=== PATIENT | male | born 1940 | race Caucasian/White ===

== ENCOUNTER 2022-01-16 16:04 | Inpatient (IN) ==
[2022-01-17] MEDS ORDERED: Acetaminophen 325 MG TABLET PO PRN (16:50)
[2022-01-17] MEDS ORDERED: Nitroglycerin 0.4 MG TAB.SUBL SL PRN (16:50)
[2022-01-17] MEDS: carvediloL 6.25 MG TABLET PO SCH (17:42)
[2022-01-18] MEDS: *HR* Enoxaparin 40 MG/0.4 ML SYRINGE SQ SCH (04:00)
[2022-01-18 04:38] LABS: Basophils % 0.5 %; Eosinophils # 0.8 K/mcL (0.0-0.6); Eosinophils % 10.2 %; Hematocrit 24.6 % (37.5-50.1); Immature Granulocytes % 0.9 % (0-4); Lymphocytes # 1.4 K/mcL (0.6-4.6); Lymphocytes % 17.4 %; Mean Corpuscular HGB Conc 32.5 g/dL (31.6-35.5); Mean Corpuscular Hemoglobin 29.1 pg (28.0-33.3); Mean Corpuscular Volume 89.5 fL (83.0-100.0); Mean Platelet Volume 9.6 fL (9.4-12.4); Monocytes # 0.9 K/mcL (0.0-1.3); Neutrophils # 4.6 K/mcL (1.6-8.9); Platelet Count 354 K/mcL (140-400); Red Blood Count 2.75 M/mcL (4.19-5.50); Red Cell Distribution Width 14.5 % (11.5-14.5); White Blood Count 7.7 K/mcL (4.3-11.1)
[2022-01-18 04:54] LABS: BUN/Creatinine Ratio 20 (6-26); Blood Urea Nitrogen 19 mg/dL (8-23); Calcium 8.4 mg/dL (8.6-10.3); Carbon Dioxide 27 mEq/L (23-29); Chloride 101 mEq/L (98-107); Glucose 107 mg/dL (70-105); Osmolality,Calculated 281 (280-300); Sodium 134 mEq/L (136-145); eGFR For African Americans > 60 (> 60); eGFR For Non-African Americans > 60 (> 60)
[2022-01-18] MEDS: Tiotropium 10 INH DOSE IH SCH (07:21)
[2022-01-18] MEDS: lisinopriL 5 MG TABLET PO SCH (08:27)
[2022-01-18] MEDS: carvediloL 6.25 MG TABLET PO SCH ×2 (08:27→16:12)
[2022-01-18] MEDS: Aspirin Enteric Coated 81 MG Tablet PO SCH (08:27)
[2022-01-18] MEDS: Melatonin 3 MG TABLET PO PRN (20:05)
[2022-01-19] MEDS: *HR* Enoxaparin 40 MG/0.4 ML SYRINGE SQ SCH (05:31)
[2022-01-19] MEDS: Tiotropium 10 INH DOSE IH SCH (07:14)
[2022-01-19] MEDS: carvediloL 6.25 MG TABLET PO SCH ×2 (08:43→16:50)
[2022-01-19] MEDS: Aspirin Enteric Coated 81 MG Tablet PO SCH (08:43)
[2022-01-19] MEDS: lisinopriL 5 MG TABLET PO SCH (08:43)
[2022-01-19] MEDS: Melatonin 3 MG TABLET PO PRN (20:06)
[2022-01-20] MEDS: *HR* Enoxaparin 40 MG/0.4 ML SYRINGE SQ SCH (05:58)
[2022-01-20] MEDS: Aspirin Enteric Coated 81 MG Tablet PO SCH (09:12)
[2022-01-20] MEDS: lisinopriL 5 MG TABLET PO SCH (09:12)
[2022-01-20] MEDS: carvediloL 6.25 MG TABLET PO SCH ×2 (09:12→16:56)
[2022-01-20] MEDS: Tiotropium 10 INH DOSE IH SCH (10:13)
[2022-01-20] MEDS: hydrOXYzine pamoate 25 MG CAPSULE PO PRN (13:24)
[2022-01-20] MEDS: Melatonin 3 MG TABLET PO PRN (21:04)
[2022-01-21] MEDS: *HR* Enoxaparin 40 MG/0.4 ML SYRINGE SQ SCH (06:36)
[2022-01-21] MEDS: lisinopriL 5 MG TABLET PO SCH (08:11)
[2022-01-21] MEDS: Aspirin Enteric Coated 81 MG Tablet PO SCH (08:11)
[2022-01-21] MEDS: carvediloL 6.25 MG TABLET PO SCH ×2 (08:12→16:15)
[2022-01-21] MEDS: Tiotropium 10 INH DOSE IH SCH (09:58)
[2022-01-21] MEDS: Melatonin 3 MG TABLET PO PRN (19:58)
[2022-01-22] MEDS: hydrOXYzine pamoate 25 MG CAPSULE PO PRN (02:47)
[2022-01-22 04:39] LABS: Basophils # 0.1 K/mcL (0.0-0.2); Basophils % 0.7 %; Eosinophils # 0.9 K/mcL (0.0-0.6); Eosinophils % 9.4 %; Hemoglobin 8.1 g/dL (12.9-16.9); Immature Granulocytes % 0.9 % (0-4); Lymphocytes # 1.5 K/mcL (0.6-4.6); Lymphocytes % 14.8 %; Mean Corpuscular HGB Conc 31.2 g/dL (31.6-35.5); Mean Corpuscular Hemoglobin 28.8 pg (28.0-33.3); Mean Corpuscular Volume 92.5 fL (83.0-100.0); Mean Platelet Volume 9.3 fL (9.4-12.4); Monocytes # 0.8 K/mcL (0.0-1.3); Monocytes % 7.6 %; Neutrophils # 6.6 K/mcL (1.6-8.9); Platelet Count 426 K/mcL (140-400); Red Blood Count 2.81 M/mcL (4.19-5.50); Red Cell Distribution Width 15.3 % (11.5-14.5); Segmented Neutrophils % 66.6 %; White Blood Count 9.9 K/mcL (4.3-11.1)
[2022-01-22 04:54] LABS: Alanine Aminotransferase 55 Units/L (7-52); Albumin 3.2 g/dL (3.5-5.7); Albumin/Globulin Ratio 1.5 (1.1-2.2); Alkaline Phosphatase 65 Units/L (34-104); Aspartate Amino Transferase 26 Units/L (13-39); BUN/Creatinine Ratio 21 (6-26); Bilirubin,Total 0.8 mg/dL (0.3-1.0); Blood Urea Nitrogen 22 mg/dL (8-23); Calcium 8.1 mg/dL (8.6-10.3); Carbon Dioxide 27 mEq/L (23-29); Chloride 103 mEq/L (98-107); Globulin 2.1 g/dL (2.4-3.5); Glucose 104 mg/dL (70-105); Osmolality,Calculated 282 (280-300); Potassium 4.3 mEq/L (3.5-5.1); Sodium 134 mEq/L (136-145); Total Protein 5.3 g/dL (6.4-8.9); eGFR For African Americans > 60 (> 60); eGFR For Non-African Americans > 60 (> 60)
[2022-01-22] MEDS: *HR* Enoxaparin 40 MG/0.4 ML SYRINGE SQ SCH (05:23)
[2022-01-22] MEDS: Tiotropium 10 INH DOSE IH SCH (07:00)
[2022-01-22] MEDS: lisinopriL 5 MG TABLET PO SCH (08:09)
[2022-01-22] MEDS: Aspirin Enteric Coated 81 MG Tablet PO SCH (08:10)
[2022-01-22] MEDS: carvediloL 6.25 MG TABLET PO SCH ×2 (08:10→17:11)
[2022-01-22] MEDS: Melatonin 3 MG TABLET PO PRN (21:36)
[2022-01-23] MEDS: *HR* Enoxaparin 40 MG/0.4 ML SYRINGE SQ SCH (05:57)
[2022-01-23] MEDS: carvediloL 6.25 MG TABLET PO SCH ×2 (07:36→17:15)
[2022-01-23] MEDS: lisinopriL 5 MG TABLET PO SCH (07:36)
[2022-01-23] MEDS: Aspirin Enteric Coated 81 MG Tablet PO SCH (07:36)
[2022-01-23] MEDS: Tiotropium 10 INH DOSE IH SCH (09:13)
[2022-01-23] MEDS: Ipratropium/Albuterol Neb 3 ML IH SCH ×2 (14:32→21:00)
[2022-01-23] MEDS: Furosemide 40 MG TABLET PO ONE ×2 (15:53→20:47)
[2022-01-23 17:58] LABS: ABG Base Excess 1 mEq/L (-2 to 3); ABG HCO3 25 mEq/L (21-27); ABG Oxygen Saturation 91 % (95-98); ABG PCO2 39 mmHg (35-45); ABG PH 7.42 pH Units (7.32-7.45); ABG PO2 59 mmHg (85-104); ABG TCO2 27 mEq/L (20-26)
[2022-01-23 20:57] LABS: Bilirubin,Urine Negative (Negative); Blood,Urine Negative (Negative); Clarity,Urine Clear (Clear); Color,Urine Yellow (Yellow); Glucose,Urine (UA) Normal (Normal); Ketones,Urine Negative (Negative); Leukocyte Esterase,Urine Negative (Negative); Nitrite,Urine Negative (Negative); PH,Urine 5.5 pH Units (5.0-8.0); Protein,Urine Negative (Neg-Trace)
[2022-01-24] MEDS ORDERED: methylPREDNISolone 125 MG/2 ML VIAL IVP ONE (00:31)
[2022-01-24] MEDS: Melatonin 3 MG TABLET PO PRN ×2 (00:51→21:25)
[2022-01-24] MEDS: Ipratropium/Albuterol Neb 3 ML IH SCH ×6 (03:59→20:36)
[2022-01-24] MEDS: *HR* Enoxaparin 40 MG/0.4 ML SYRINGE SQ SCH (04:06)
[2022-01-24 04:55] LABS: Hematocrit 28.9 % (37.5-50.1); Hemoglobin 9.2 g/dL (12.9-16.9); Mean Corpuscular HGB Conc 31.8 g/dL (31.6-35.5); Mean Corpuscular Hemoglobin 28.8 pg (28.0-33.3); Mean Corpuscular Volume 90.6 fL (83.0-100.0); Mean Platelet Volume 9.4 fL (9.4-12.4); Platelet Count 484 K/mcL (140-400); Red Blood Count 3.19 M/mcL (4.19-5.50); Red Cell Distribution Width 15.5 % (11.5-14.5); White Blood Count 9.1 K/mcL (4.3-11.1)
[2022-01-24 05:18] LABS: Alanine Aminotransferase 46 Units/L (7-52); Albumin 3.6 g/dL (3.5-5.7); Albumin/Globulin Ratio 1.5 (1.1-2.2); Alkaline Phosphatase 83 Units/L (34-104); Aspartate Amino Transferase 27 Units/L (13-39); BUN/Creatinine Ratio 18 (6-26); Bilirubin,Total 0.8 mg/dL (0.3-1.0); Blood Urea Nitrogen 21 mg/dL (8-23); Calcium 8.8 mg/dL (8.6-10.3); Carbon Dioxide 27 mEq/L (23-29); Chloride 101 mEq/L (98-107); Globulin 2.4 g/dL (2.4-3.5); Glucose 144 mg/dL (70-105); Osmolality,Calculated 288 (280-300); Potassium 4.3 mEq/L (3.5-5.1); Sodium 136 mEq/L (136-145); eGFR For African Americans > 60 (> 60); eGFR For Non-African Americans > 60 (> 60)
[2022-01-24] MEDS: Tiotropium 10 INH DOSE IH SCH (07:03)
[2022-01-24] MEDS: lisinopriL 5 MG TABLET PO SCH (07:42)
[2022-01-24] MEDS: carvediloL 6.25 MG TABLET PO SCH ×2 (07:43→16:12)
[2022-01-24] MEDS: Aspirin Enteric Coated 81 MG Tablet PO SCH (07:43)
[2022-01-24 08:31] LABS: % Iron Saturation 9 % (20-55); Iron 26 mcg/dL (65-175); Transferrin 216 mg/dL (203-362)
[2022-01-24 08:42] LABS: Folate 19.5 ng/mL (3.0-16.0)
[2022-01-24] MEDS: Furosemide 20 MG TABLET PO SCH (16:12)
[2022-01-25] MEDS: Ipratropium/Albuterol Neb 3 ML IH SCH ×6 (00:15→20:04)
[2022-01-25] MEDS: *HR* Enoxaparin 40 MG/0.4 ML SYRINGE SQ SCH (05:20)
[2022-01-25] MEDS: Tiotropium 10 INH DOSE IH SCH (06:36)
[2022-01-25] MEDS: Furosemide 20 MG TABLET PO SCH (08:11)
[2022-01-25] MEDS: Aspirin Enteric Coated 81 MG Tablet PO SCH (08:11)
[2022-01-25] MEDS: carvediloL 6.25 MG TABLET PO SCH ×2 (08:11→16:13)
[2022-01-25] MEDS: lisinopriL 5 MG TABLET PO SCH (08:11)
[2022-01-25] MEDS ORDERED: Ipratropium/Albuterol Neb 3 ML IH PRN (18:10)
[2022-01-25] MEDS: MethylPREDNISolone 40 MG/ML VIAL IVP SCH ×2 (18:15→23:52)
[2022-01-25] MEDS: Melatonin 3 MG TABLET PO PRN (22:07)
[2022-01-26] MEDS: Ipratropium/Albuterol Neb 3 ML IH SCH ×3 (00:05→07:50)
[2022-01-26] MEDS: *HR* Enoxaparin 40 MG/0.4 ML SYRINGE SQ SCH (06:12)
[2022-01-26] MEDS: MethylPREDNISolone 40 MG/ML VIAL IVP SCH (06:12)
[2022-01-26 07:39] VITALS: BP 119/70; PULSE 74; RESP 18; TEMP 97.7; O2SAT 93
[2022-01-26] MEDS: lisinopriL 5 MG TABLET PO SCH (07:44)
[2022-01-26] MEDS: Aspirin Enteric Coated 81 MG Tablet PO SCH (07:44)
[2022-01-26] MEDS: carvediloL 6.25 MG TABLET PO SCH (07:45)
[2022-01-26] MEDS: Furosemide 20 MG TABLET PO SCH (07:45)
[2022-01-26] MEDS: Tiotropium 10 INH DOSE IH SCH (07:50)
== END 2022-01-26 12:03 | disposition home health service (06) | DRG 200 ==
LOC: INPGRE 01-17 15:12
PROVIDERS: ADMIT Family Medicine; ATTEND Family Medicine